=== PATIENT | female | born 1950 | race Hispanic/Latino ===

== ENCOUNTER 2018-08-17 19:03 | Observation (INO) | payer MEDICARE, OTHER ==
[~2018-08-17] VITALS: Ht 160 cm; Wt 127.7 kg
--- OUTSIDE RECORDS SUMMARY | 2018-08-17 19:06 | XMS REPORT | Summary of Care ---
Author Author JULIO NÚÑEZ M.D. Organization Unknown Address [facility] Phone Unavailable Care Team Providers Care Mobile Security Architect Name Role Phone JULIO NÚÑEZ M.D. Unavailable Unavailable ORLANDO LOZA MD Unavailable Unavailable Functional Status Name Dates Details Functional status health issues are not documented Status: Name Dates Details Cognitive status health issues are not documented Status: Problems Name Dates Details Tendinitis of right rotator cuff (726.10, M75.81) Status: Active Medications Name Dates Details Meloxicam 15 MG Oral Tablet TAKE 1 TABLET DAILY NEEDED. Quantity: 60 JULIO NÚÑEZ M.D. * Start : 10-Dec-2017 Active Allergies and Adverse Reactions Name Dates Details No Known Drug Allergies (Allergy) Status: Active No Known Environmental Allergies (Allergy) Status: Active Past Medical History Name Dates Details History of thyroid disorder (V12.29, Z86.39) Status: Resolved Procedures Procedure Dates Details MR Shoulder wo contrast 09093 Date: 12-Nov-2017 History of No history of surgery Completed Immunization Name Dates Details Immunizations not documented Family History Name Dates Details Family history of hypertension (V17.49, Z82.49) Comments: Other Status: Active Family history of arthritis (V17.7, Z82.61) Comments: Other Status: Active Social History Name Dates Details Unknown if ever smoked Vital Signs Date Test Result Details No Known Vitals to report Results Date Description Value Details Results not documented Plan of Care Name Dates Details Planned Observations Planned Goals not documented Interventions Provided Medication Changes* Meloxicam 15 MG Oral Tablet - Start Instructions Name Dates Details Instructions not documented Encounters Appointment; JULIO NÚÑEZ M.D. Encounter Diagnosis: Problem not documented On: 01-Oct-2017 10:15 Appointment; JULIO NÚÑEZ M.D. Encounter Diagnosis: Problem not documented On: 12-Nov-2017 11:00 Appointment; JULIO NÚÑEZ M.D. Encounter Diagnosis: Problem not documented On: 10-Dec-2017 11:00
[2018-08-17] MEDS ORDERED: POTASSIUM CHLORIDE 20 MEQ TAB CR PO STA (20:40)
--- NOTE | 2018-08-17 20:55 | Diagnostic Imaging Report ---
EXAMINATION: [facility] INDICATION: ^[id number] ^2014 COMPARISON: None FINDINGS: AP view TUBES and LINES: None. LUNGS: Limited by body habitus. Lungs are well inflated. Central peribronchial cuffing and mild vascular congestion. PLEURA: No pleural effusion or pneumothorax. HEART AND MEDIASTINUM: The cardiomediastinal silhouette is enlarged. BONES AND SOFT TISSUES: No acute osseous lesion. Soft tissues are unremarkable. UPPER ABDOMEN: No free air under the diaphragm. IMPRESSION: Enlarged cardiomediastinal silhouette, central peribronchial cuffing, and mild vascular congestion. Signed by: Dr. Edgardo Molina MD on 08/17/2018 8:51 PM
[2018-08-17] MEDS ORDERED: KETOROLAC TROMETHAMINE 30 MG/ML VIAL IV STA (21:03)
--- NOTE | 2018-08-17 22:23 | Diagnostic Imaging Report ---
EXAM: Bilateral Lower Extremity Venous Duplex Ultrasound INDICATION: ^[id number] ^2039 COMPARISON: None TECHNIQUE: Chavis scale, color Doppler and spectral waveform analysis of the bilateral lower extremities deep venous system was performed. FINDINGS: Limited study due to body habitus. Right Lower Extremity: Common Femoral: Fully compressible with normal spontaneous waveforms. Proximal Greater Saphenous: Fully compressible. Femoral: Distal superficial femoral vein was not compressible. Proximal Deep Femoral: Normal spontaneous waveforms. Popliteal: Fully compressible with normal spontaneous waveforms. Left Lower Extremity: Common Femoral: Fully compressible with normal spontaneous waveforms. Proximal Greater Saphenous: Fully compressible. Femoral: Fully compressible with normal spontaneous waveforms. Normal response to augmentation. Proximal Deep Femoral: Normal spontaneous waveforms. Popliteal: Fully compressible with normal spontaneous waveforms. IMPRESSION: Limited study due to body habitus. Suspected distal right superficial femoral vein deep venous thrombosis. Findings discussed with Dr. Nicole at 10:19 PM, on 08/17/2018. Signed by: Dr. Edgardo Molina MD on 08/17/2018 10:20 PM
[2018-08-17] MEDS ORDERED: ENOXAPARIN SODIUM INJ 100 MG/ML SYR SC STA (22:31)
[2018-08-17] MEDS ORDERED: ONDANSETRON HCL INJ 2MG/ML 2ML 2 MG/ML VIAL IV PRN (22:45)
[2018-08-17] MEDS ORDERED: SODIUM CHLORIDE FLUSH 10 ML SYR INJ PRN (22:45)
--- OUTSIDE RECORDS SUMMARY | 2018-08-17 22:45 | XMS REPORT ---
Author Author [facility] Address Unknown Phone Unavailable Care Team Providers Care Manufacturing Cost Estimator Name Role Phone JOHANNA SCHMIDT Unavailable Unavailable Problems This patient has no known problems. Allergies, Adverse Reactions, Alerts This patient has no known allergies or adverse reactions. Medications This patient has no known medications. Results Test Description Test Time Test Comments Text Results Atomic Results Result Comments LOW EXT VIENS LIMITED BILAT 2018-08-17 22:14:00 [place] [address] Patient Name: ORLANDO CORONADO MR #: [id number] : 1950 Age/Sex: 68/F Req #: [id number] [facility] Physician: Ordered by: JOHANNA SCHMIDT MD Report #: [id number] Location: [facility] Room/Bed: Procedure: [id number] HOPD/US LOW EXT VIENS LIMITED BILAT Exam Date: 08/17/18 Exam Time: 2039 REPORT STATUS: Signed EXAM: Bilateral Lower Extremity Venous Duplex Ultrasound INDICATION: [id number] COMPARISON: None TECHNIQUE: Chavis scale, color Doppler and spectral waveform analysis of the bilateral lower extremities deep venous system was performed. FINDINGS: Limited study due to body habitus. Right Lower Extremity: Common Femoral: Fully compressible with normal spontaneous waveforms. Proximal Greater Saphenous: Fully compressible. Femoral: Distal superficial femoral vein was not compressible. Proximal Deep Femoral: Normal spontaneous waveforms. Popliteal: Fully compressible with normal spontaneous waveforms. Left Lower Extremity: Common Femoral: Fully compressible with normal spontaneous waveforms. Proximal Greater Saphenous: Fully compressible. Femoral: Fully compressible with normal spontaneous waveforms. Normal response to augmentation. Proximal Deep Femoral: Normal spo ntaneous waveforms. Popliteal: Fully compressible with normal spontaneous waveforms. IMPRESSION: Limited study due to body habitus. Suspected distal right superficial femoral vein deep venous thrombosis. Findings discussed with Dr. Schmidt at 10:19 PM, on 08/17/2018. Signed by: Dr. Edgardo Matthews MD on 08/17/2018 10:20 PM Dictated By: EDGARDO MATTHEWS MD 19 Transcribed By: REBECCA on 08/17/182219 COPY TO: JOHANNA SCHMIDT MD CXR 1 [facility] 2018-08-17 20:49:00 [place] [address] Patient Name: ORLANDO CORONADO MR #: [id number] : 1950 Age/Sex: 68/F Req #: [id number] Adm Physician: Ordered by: JOHANNA SCHMIDT MD Report #: [id number] Location: [facility] Room/Bed: Procedure: [id number] HOPD/CXR 1 W - [facility] Exam Date: 08/17/18 Exam Time: 2014 REPORT STATUS: Signed EXAMINATION: CXR 1 [facility] INDICATION: [id number] COMPARISON: None FINDINGS: AP view TUBES and LINES: None. LUNGS: Limited by body habitus. Lungs are well inflated. Central peribronchial cuffing and mild vascular congestion. PLEURA: No pleural effusion or pneumothorax. HEART AND MEDIASTINUM: The cardiomediastinal silhouette is enlarged. BONES AND SOFT TISSUES: No acute osseous lesion. Soft tissues are unremarkable. UPPER ABDOMEN: No free air under the diaphragm. IMPRESSION: Enlarged cardiomediastinal silhouette, central peribronchial cuffing, and mild vascular congestion. Signed by: Dr. Edgardo Matthews MD on 08/17/2018 8:51 PM Dictated By: EDGARDO MATTHEWS MD 50 Transcribed By: REBECCA on 08/17/182050 COPY TO: JOHANNA SCHMIDT MD
[2018-08-17] MEDS ORDERED: LEVOTHYROXINE75 MCG PO (22:55)
[2018-08-17] MEDS ORDERED: AMLODIPINE BESY10 MG PO (22:55)
[2018-08-17] MEDS ORDERED: SIMVASTATIN40 MG PO (22:55)
[2018-08-17] MEDS ORDERED: METOPROLOL TART50 MG PO (22:55)
[2018-08-17] MEDS ORDERED: PANTOPRAZOLE SO40 MG PO (22:55)
[2018-08-17] MEDS ORDERED: CLONIDINE HCL0.1 MG PO (22:55)
[2018-08-17] MEDS ORDERED: OMEPRAZOLE40 MG (22:55)
[2018-08-18] VITALS (8 sets, daily range): BP systolic 109–133; BP diastolic 58–63
--- NOTE | 2018-08-18 00:10 | NUR ---
Received patient via EMS. Patient is alert and oriented. Pitting edema to both lower extremities noted. Telemetry started as ordered. No complain of leg pain at this time. Assisted to bed. Oriented to bedroom. Call light within reached and encouraged to use
--- NOTE | 2018-08-18 07:00 | NUR ---
rounded with shift boss nurse, patient aware of change and in no distress. call humphrey within reach, bed in lowest position and family at bedside.
[2018-08-18 07:50] LABS: BASOPHILS % 0.5 % (0.0-1.0); EOSINOPHILS # (AUTO) 0.1 (0.0-0.4); EOSINOPHILS % 3.1 % (0.0-6.0); HEMATOCRIT 32.3 % (34.2-44.1); HEMOGLOBIN 9.7 g/dL (12.0-16.0); LYMPHOCYTES # (AUTO) 1.1 (1.0-3.2); LYMPHOCYTES % 24.9 % (18.0-39.1); MEAN CORPUSCULAR HEMOGLOBIN 27.5 pg (28-32); MEAN CORPUSCULAR VOLUME 91.5 fL (81-99); MONOCYTES # (AUTO) 0.6 (0.2-0.8); MONOCYTES % 14.1 % (4.4-11.3); NEUTROPHILS # (AUTO) 2.4 (2.1-6.9); NEUTROPHILS % 57.2 % (38.7-80.0); PLATELET COUNT 153 x10e3/uL (140-360); RED BLOOD COUNT 3.53 x10e6/uL (3.6-5.1); RED CELL DISTRIBUTION WIDTH 14.9 % (11.7-14.4)
[2018-08-18 08:14] LABS: ALANINE AMINOTRANSFERASE 17 IU/L (0-55); ALBUMIN 3.1 g/dL (3.5-5.0); ALBUMIN/GLOBULIN RATIO 1.1 (0.8-2.0); ALKALINE PHOSPHATASE 87 IU/L (40-150); ANION GAP 9.6 mmol/L (8-16); BLOOD UREA NITROGEN 15 mg/dL (7-26); BUN/CREATININE RATIO 21 (6-25); CARBON DIOXIDE 25 mmol/L (22-29); CHLORIDE 113 mmol/L (98-107); EST GLOMERULAR FILTRATION RATE > 60 ML/MIN (60-); GLUCOSE 100 mg/dL (74-118); POTASSIUM 3.6 mmol/L (3.5-5.1); SODIUM 144 mmol/L (136-145)
[2018-08-18] MEDS ORDERED: CLONIDINE HCL 0.1 MG TAB PO PRN (08:15)
[2018-08-18] MEDS ORDERED: LEVOTHYROXINE SODIUM 75 MCG TAB PO SCH (08:30)
[2018-08-18] MEDS ORDERED: AMLODIPINE BESYLATE 10 MG TAB PO SCH (09:00)
[2018-08-18] MEDS ORDERED: ENOXAPARIN SODIUM INJ 100 MG/ML SYR SC SCH (09:00)
--- NOTE | 2018-08-18 09:10 | Pre Op History & Physical ---
CHIEF COMPLAINT: Leg swelling. HISTORY OF PRESENT ILLNESS: The patient is a 68-year-old woman. She has a history of intermittent leg swelling. It has been worse the last couple days. She denies any chest pain or fevers. She denies any preexisting cardiac or liver disease. She went to the freestanding emergency department yesterday and had venous duplex studies that showed a possible vein thrombosis in the superficial femoral vein on the right leg. PAST SURGICAL HISTORY: Status post colon resection for early colon cancer. The patient did not receive any postoperative chemo or radiation. PAST MEDICAL HISTORY: 1. Hypertension. 2. No cardiac history. 3. No liver disease. 4. No prior kidney disease. SOCIAL HISTORY: The patient is not a smoker. She is not a drinker. REVIEW OF SYSTEMS: The patient is afebrile. The patient does not complain of headache or neck pain. She has no sore throat. She has no chest pain. She has no cough or dyspnea. She has no abdominal pain. She does have 2 to 3+ leg edema bilaterally. PHYSICAL EXAMINATION: VITAL SIGNS: The patient is afebrile. The vital signs are stable. HEENT: Shows no facial swelling or erythema. The nasal mucosa is normal. The oropharynx is normal. LYMPHATIC: Shows no submandibular, cervical, or supraclavicular adenopathy. CARDIAC: Reveals a regular rate and rhythm with normal S1 and S2. LUNGS: Auscultation of lungs shows clear breath sounds bilaterally. There is no wheezing. ABDOMEN: Soft, nontender. There is no rebound or guarding. EXTREMITIES: Show 3+ leg edema. NEUROLOGICAL: Shows no focal abnormalities. LABORATORY DATA: BUN to creatinine ratio is normal. Potassium is 3.2, but otherwise, the electrolytes are within normal limits. Albumin is 3.9 and the liver tests are normal. Urinalysis shows no proteinuria. White blood cell count is normal and hemoglobin is 10.9. Platelet count is normal. Tox screen is negative and influenza screen is negative. IMPRESSION: 1. Deep vein thrombosis of the right lower extremity. 2. Hypertension. 3. Leg edema bilaterally. 4. Hypothyroidism. PLAN: 1. Begin treatment for the deep vein thrombosis. The patient will need a total of 3 months of therapy with a factor Xa inhibitor. 2. Stop amlodipine and substitute Diovan. Amlodipine could be worsening the leg swelling. 3. Echocardiogram. 4. Tentative discharge home tomorrow. MD PARISA Haney/EMILIANO /[id number]
[2018-08-18] MEDS: VALSARTAN 80 MG TAB PO SCH (09:15)
[2018-08-18] MEDS: METOPROLOL TARTRATE 50 MG TAB PO SCH ×2 (09:15→16:35)
[2018-08-18] MEDS: ENOXAPARIN SODIUM INJ 100 MG/ML SYR SC SCH ×2 (09:15→20:24)
[2018-08-18] MEDS: PANTOPRAZOLE SOD 40 MG TABEC PO SCH (09:15)
--- NOTE | 2018-08-18 11:06 | NUR ---
CASE MANAGEMENT INITIAL ASSESSMENT Oil Burner Journeyman to bedside to discuss plan of care with patient/family. CM/SW role and care transitions discussed. Anticipated discharge plan discussed along with duration of care. CM/SW discussed patients right to make decisions in care. CM/SW work hours given. Patient lives: ALONE IN AN DOWN STAIR APARTMENT; SUPPORTIVE DAUGHTER LIVES NEAR Admit/Transfer: ER Hospital/ER visits since last admit:0 POA/Emergency contact: DAUGHTER: RICARDO VARGHEES [phone] Current/Previous Home Health: NO PCP/Follow-up Care: [facility] [place] [phone] Current/Previous DME: W[facility]ER WITH SEAT, [facility]E Medications (referring to index hospitalization or the first time you were in the hospital) a. Were changes made in your medications when you were in the hospital on [date of index hospitalization]? Yes No Not sure Explain: N/A Note: If no or not sure, please skip to question d b. Did you understand the changes? Yes No Explain: c. Were you able to obtain your new medications right away? Yes No n/a SNF only Explain: d. Were you able to take your medications like the doctor wanted you to? X Yes No Explain: e. Did the hospital give you an accurate, easy to understand list of medications when you left? Yes No n/a SNF only Explain:N/A Scale of 1-10 how comfortable does patient feel with disease management in outpatient settin Other Services: 0 Employment Status: RETIRED Areas of Concerns: 0 Referral Needs: 0 Education Needs: ANY NEW MEDS IMM/ANDINO given and signed (if applicable): N/A Goal for discharge: TO RETURN HOME CM/SW left business card at the bedside with contact information. Name and number was also written on the patients whiteboard. Patient verbalized understanding of discussion. CM will follow-up with ongoing discharge and transition of care needs.
--- NOTE | 2018-08-18 18:48 | NUR ---
walking rounds made with film processing shift supervisor nurse, patient resting comfortably and in no distress. call humphrey within reach and bed in lowest position
[2018-08-18] MEDS ORDERED: SIMVASTATIN 40 MG TAB PO SCH (21:00)
[2018-08-18] MEDS ORDERED: ZOLPIDEM TARTRATE 10 MG TAB PO PRN (21:00)
[2018-08-19 00:38] VITALS: BP 139/64
[2018-08-19 04:27] VITALS: BP 132/63
[2018-08-19] MEDS ORDERED: LEVOTHYROXINE SODIUM 125 MCG TAB PO SCH (06:00)
[2018-08-19 07:19] VITALS: BP 135/65
[2018-08-19 07:40] VITALS: BP 135/65
[2018-08-19] MEDS: PANTOPRAZOLE SOD 40 MG TABEC PO SCH (08:47)
[2018-08-19] MEDS: METOPROLOL TARTRATE 50 MG TAB PO SCH (08:47)
[2018-08-19] MEDS: VALSARTAN 80 MG TAB PO SCH (08:47)
[2018-08-19] MEDS: ENOXAPARIN SODIUM INJ 100 MG/ML SYR SC SCH (08:47)
[2018-08-19 11:23] VITALS: BP 118/56
--- NOTE | 2018-08-19 11:37 | NUR ---
ORDER FOR ROLLING WALKER PROVIDED TO PT DURAMEDIC FORM COMPLETED WITH FACE SHEET AND ORDER ATTATCHED
[2018-08-19] MEDS ORDERED: ONDANSETRON HCL 4 MG ORAL DISINTEGRATING TAB PO PRN (14:30)
[2018-08-19 15:15] VITALS: BP 131/68
[2018-08-19] MEDS ORDERED: DIOVAN80 MG PO (15:34)
[2018-08-19] MEDS ORDERED: eliquis PO (15:36)
--- NOTE | 2018-08-19 16:36 | NUR ---
Patient discharged Home, Alert with no distress, prescriptions given, aware about f/up appointments, IV canula removed with tip intact, no ss of infiltration. son at bed side to take her home, transported via to [facility]
--- NOTE | 2018-08-20 14:25 | Discharge Summary ---
DISCHARGE DIAGNOSES: 1. Deep vein thrombosis of the femoral vein in the right lower extremity. 2. Hypertension. 3. Leg edema. 4. Hypothyroidism. RADIOGRAPHIC DATA: 1. Venous duplex study shows a partial thrombosis in the superficial femoral vein on the right side. 2. Echocardiogram shows a preserved ejection fraction of 50% to 55%. There is some concentric left ventricular hypertrophy, but no significant valvular abnormality. 3. Chest x-ray shows no active disease. CONSULTING PHYSICIAN: Dr. Campos of Cardiology. HISTORY OF PRESENT ILLNESS: The patient is a 68-year-old woman. She has a history of intermittent leg swelling. It has been worse recently. She has never had liver problems or a cardiac disease. HOSPITAL COURSE: The patient initially came to the freestanding Emergency Department. A venous duplex showed a deep vein thrombosis on the right side. She was started on Lovenox and admitted. She was evaluated by Cardiology and felt not to have any significant heart failure. She also had a urinalysis that showed no proteinuria and liver function tests that showed no abnormalities. Upon further review, the patient disclosed that she was taking amlodipine. This was switched to Diovan to prevent worsening of the leg swelling. She was switched from Lovenox to Eliquis. She felt better at the time of discharge and was eager to go home. DISPOSITION: The patient will be discharged home and will follow up with Dr. Vargas. She will need Eliquis or another anticoagulant for a total of three months. She will also need followup for her blood pressure and leg edema. Followup appointment was arranged with Dr. Vargas in 7 to 10 days. Michael Vargas MD LM/EMILIANO /[id number]
== END 2018-08-19 16:40 | disposition home or self-care (01) ==
LOC: FSED 19:03 → ERHOLD 22:42 → IMCU 08-18 00:07
PROVIDERS: ADMIT Internal Medicine Critical Care Medicine; ATTEND Internal Medicine Critical Care Medicine
DX: I82.411 Acute embolism and thrombosis of right femoral vein (principal); I10 Essential (primary) hypertension; E78.5 Hyperlipidemia, unspecified; E03.9 Hypothyroidism, unspecified; Z85.038 Personal history of other malignant neoplasm of large intestine; D64.9 Anemia, unspecified; E87.8 Other disorders of electrolyte and fluid balance, not elsewhere classified
CPT/HCPCS: 36415; 71045; 80048; 80053; 80076; 81003; 83880; 85025 ×2; 93005; 93306; 93970; 99284; G0378 ×3; J1650 ×2; S0164 ×2

== ENCOUNTER → 2018-10-11 | Outpatient (CLI) | payer MEDICARE, OTHER ==
[~2018-10-11] MED LIST: AMLODIPINE BESY10 MG PO; CLONIDINE HCL0.1 MG PO; DIOVAN80 MG PO; LEVOTHYROXINE75 MCG PO; METOPROLOL TART50 MG PO; OMEPRAZOLE40 MG; PANTOPRAZOLE SO40 MG PO; SIMVASTATIN40 MG PO; eliquis PO
--- NOTE | 2018-10-11 13:56 | Diagnostic Imaging Report ---
Exam: Right knee 3 views History: Arthritis Comparison: None. Findings: No acute, displaced fracture or dislocation. Advanced lateral compartment predominant tricompartmental joint space narrowing, subchondral sclerosis, and marginal osteophytosis. No definite joint effusion. Soft tissues are unremarkable. 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 Signed by: Dr. Chirag Vasquez M.D. on 10/11/2018 1:53 PM
== END ==
LOC: RAD 13:10
PROVIDERS: ATTEND Internal Medicine Critical Care Medicine
DX: M17.11 Unilateral primary osteoarthritis, right knee (principal)

== ENCOUNTER 2020-10-31 22:43 | Emergency (ER) | payer OTHER, MEDICARE ==
[~2020-10-31] VITALS: Ht 160 cm; Wt 127.9 kg
[2020-11-01 00:34] VITALS: BP 141/66
== END 2020-11-01 00:32 | disposition home or self-care (01) ==
LOC: FSED 23:03
DX: S00.83XA Contusion of other part of head, initial encounter (principal); W01.198A Fall on same level from slipping, tripping and stumbling with subsequent striking against other object, initial encounter; Y93.01 Activity, walking, marching and hiking; Y92.008 Other place in unspecified non-institutional (private) residence as the place of occurrence of the external cause; I10 Essential (primary) hypertension; E03.9 Hypothyroidism, unspecified; E78.5 Hyperlipidemia, unspecified; K21.9 Gastro-esophageal reflux disease without esophagitis; Z85.038 Personal history of other malignant neoplasm of large intestine
CPT/HCPCS: 70450; 70486; 72125; 99283